=== PATIENT | female | born 1995 | race Caucasian/White ===

== ENCOUNTER → 2016-12-10 | Outpatient (CLI) | payer OTHER ==
--- NOTE | 2016-12-10 08:26 | US ---
EXAMINATION TYPE: US abdomen complete DATE OF EXAM: 12/10/2016 7:26 AM COMPARISON: NONE CLINICAL HISTORY: R10.13 Epigastric pain. Patient states epigastric pain radiates to back, especially in supine position. EXAM MEASUREMENTS: Liver Length: 18.3 cm Gallbladder Wall: 0.3 cm CBD: 0.3 cm Spleen: 10.2 cm Right Kidney: 10.5 x 6.4 x 4.4 cm Left Kidney: 11.2 x 6.5 x 4.6 cm Pancreas: Tail obscured by overlying bowel gas Liver: prominent as is > 18cm. Echotexture thought to be within normal limits. Gallbladder: full of shadowing stones; wall is minimally thickened Evidence for sonographic Huerta's sign: No CBD: wnl Spleen: wnl Right Kidney: wnl Left Kidney: wnl Upper IVC: wnl Abd Aorta: wnl There is no ascites. IMPRESSION: Cholelithiasis, limited exam. Hepatomegaly is borderline
== END | disposition home or self-care (01) ==
LOC: RADUSWWP 06:52
PROVIDERS: ATTEND Internal Medicine
DX: K80.20 Calculus of gallbladder without cholecystitis without obstruction (principal); R16.0 Hepatomegaly, not elsewhere classified
CPT/HCPCS: 76700

== ENCOUNTER 2016-12-24 07:10 | Day surgery (SDC) | payer OTHER ==
[2016-12-22 10:24] VITALS: BMI 25.7
[~2016-12-24 07:10] MED LIST: DEXAMETHASONE SOD PHOSPHATE 10 MG/ML 1 ML VIAL IV ONE; HEPARIN SODIUM,PORCINE 5,000 UNIT/ML 1 ML VIAL SQ ONE; HYDROmorphone 1 MG/ML 1 ML SYRINGE IVP PRN; MIDAZOLAM 2 MG/2 ML VIAL IV PRN; ONDANSETRON 4 MG/2 ML VIAL IVP ONE; SCOPOLAMINE 1.5MG/72HR PATCH TRANSDERM ONE; ceFAZolin 2 GM in SODIUM CHLORIDE 0.9% 100 ML IVPB ONE
[2016-12-24] MEDS ORDERED: LIDOCAINE 1% 20 ML VIAL (10MG/ML) FOR IV START INTRADERMA ONE (08:02)
[2016-12-24] MEDS: LACTATED RINGERS 1,000 ML IV SCH ×2 (08:02→08:28)
[2016-12-24] MEDS ORDERED: fentaNYL (PF) 50 MCG/ML 2 ML AMP ONE (08:29)
[2016-12-24] MEDS ORDERED: PROPOFOL 10 MG/ML 20 ML VIAL IV ONE (08:29)
[2016-12-24] MEDS ORDERED: SUCCINYLCHOLINE CHLORIDE 100 MG/5 ML SYR IV ONE (08:29)
[2016-12-24] MEDS ORDERED: ROCURONIUM BROMIDE 10 MG/ML 10 ML VIAL IV ONE (08:29)
[2016-12-24] MEDS ORDERED: LIDOCAINE 1% INJ 10MG/ML (20 ML MDV) ONE (08:29)
[2016-12-24] MEDS ORDERED: MIDAZOLAM 2 MG/2 ML VIAL ONE (08:29)
[2016-12-24] MEDS ORDERED: PHENYLEPHRINE-0.9% NACL SYG 1 MG/10 ML SYRINGE ONE (08:29)
[2016-12-24] MEDS ORDERED: BUPIVACAIN-EPI 0.25%-1:200,000 30 ML VIAL SQ ONE ×2 (08:44→09:39)
[2016-12-24] MEDS ORDERED: LACTATED RINGERS 1,000 ML IV ONE (09:42)
[2016-12-24 10:08] VITALS: TEMP 97
--- NOTE | 2016-12-24 10:37 | P.OP ---
Date of Procedure: 12/24/16 Preoperative Diagnosis: Chronic cholecystitis Postoperative Diagnosis: Chronic choelcystitis Procedure(s) Performed: Laparoscopic cholecystectomy Implants: Pathology: other Condition: stable Indications for Procedure: Intermittent RUQ pain with fatty food intolerance and ultrasound proven cholelithiasis Operative Findings: Large distended elongated gall bladder withe multiple stones. Prominent chronic inflammatory adhesions Description of Procedure: The patient is a 21-year-old female who presented with epigastric and upper abdominal pain which localized in the right upper quadrant and an ultrasound suggested cholelithiasis. Clinical diagnosis of chronic cholecystitis was made. The risks benefits and possible complications of the procedure were discussed in detail and informed consent was obtained. Patient was identified in the preop operating holding area questions were answered and she was taken back to the operating room where she was placed in the supine position. She was given general anesthesia with endotracheal intubation followed by the placement of an orogastric tube and an appropriate timeout was called the indication for the procedure ALLERGIES medications thromboprophylaxis were all discussed. Abdomen is prepped and draped in the usual sterile surgical fashion supraumbilical region was infiltrated with quarter percent with local anesthesia and incision was made with 11 blade and Veress needle was introduced and abdomen was insufflated to 15 mmHg. Once that was done a 10 mm epigastric port and two 5 mm right upper quadrant ports were placed.the gallbladder was retracted cephalad and superiorly.The fundus was retracted so as to make the Calot's triangle more visible. There were inflammatory peritoneal adhesions and the gallbladder was distended. The adhesions were taken down with the help of blunt dissection and using some electrocautery, skeletonizing the cystic duct ,. there was a large single prominent cystic artery . Cystic duct was clipped proximally and distally followed by clipping of the cystic artery following which they were transected sharply with the help of the niecy. The gallbladder was then taken off the gallbladder fossa with the help of electrocautery and placed in an Endo Catch bag and removed through the 10 m port site after dilating the port site with a Melinda. The port was replaced and the gallbladder fossa was inspected and hemostasis was secured with the help of electrocautery the abdomen was thoroughly irrigated and sucked dry. Tita were noted to be in the appropriate position at this time to take procedure was terminated. the 10 mm port was removed and the port site was closed with the help of a Len Ruiz using 0 Vicryl.The Gas was shut off and all the 5 mm ports were removed. The abdomen was thoroughly desufflated. The remaining local anesthesia was infiltrated into the incisions and the incisions were closed with the help of 4-0 Monocryl Steri-Strips and Dermabond was applied. The patient was extubated and taken to recovery room in stable condition the orogastric tube was removed prior to extubation. There were no complications.
[2016-12-24] MEDS ORDERED: HYDROcodone/APAP 5-325MG 1 EACH TAB PO ONE (11:29)
[2016-12-24 12:09] VITALS: BP 121/67; PULSE 98; RESP 18
== END 2016-12-24 12:29 | disposition home or self-care (01) ==
LOC: OR 07:10
PROVIDERS: ATTEND Surgery
DX: K80.10 Calculus of gallbladder with chronic cholecystitis without obstruction (principal); M94.0 Chondrocostal junction syndrome [Tietze]
CPT/HCPCS: 81025; 88304; 47562; J2250; J1644; J1100; J0690; J2405; J2001; J3010; J2370; J0330; J2704

== ENCOUNTER 2017-02-21 07:29 | Emergency (ER) | payer OTHER ==
[2017-02-21 07:35] VITALS: BP 122/58; PULSE 75; RESP 16; TEMP 97.2
--- NOTE | 2017-02-21 08:32 | ED ---
ENT HPI - General Chief complaint: ENT Stated complaint: Ear pain Time Seen by Provider: 02/21/17 08:24 Source: patient, RN notes reviewed Mode of arrival: ambulatory Limitations: no limitations - History of Present Illness Initial comments: 21-year-old female presents emergency Department chief complaint bilateral ear pain, congestion. Patient states her last few days. Patient states that was worse last night no shortness breath no chest pain no nausea vomiting no fever no chills. - Related Data Previous Rx's Medication Instructions Recorded HYDROcodone/APAP 5-325MG [[place] 1 tab PO Q6HR PRN #15 tab 12/24/16 5-325] Ibuprofen [Motrin] 800 mg PO Q6HR PRN #30 tab 12/24/16 Amoxicillin 875 mg PO Q12HR #20 tablet 02/21/17 Zlsbriie-Sngjwakga-Yc Otic 3 drops BOTH EARS TID #10 ml 02/21/17 [Cortisporin Otic Soln] Allergies Allergy/AdvReac Type Severity Reaction Status Date / Time No Known Allergies Allergy Verified 02/21/17 07:35 Review of Systems ROS Statement: Those systems with pertinent positive or pertinent negative responses have been documented in the HPI. ROS Other: All systems not noted in ROS Statement are negative. Past Medical History Past Medical History: No Reported History Additional Past Medical History / Comment(s): GALLBLADDER ISSUES History of Any Multi-Drug Resistant Organisms: None Reported Past Surgical History: Cholecystectomy Past Anesthesia/Blood Transfusion Reactions: No Reported Reaction Past Psychological History: Anxiety Smoking Status: Never smoker Past Alcohol Use History: None Reported Past Drug Use History: None Reported - Past Family History Mother Family Medical History: No Reported History General Exam Limitations: no limitations General appearance: alert, in no apparent distress Head exam: Present: atraumatic, normocephalic, normal inspection Eye exam: Present: normal appearance, PERRL, EOMI. Absent: scleral icterus, conjunctival injection, periorbital swelling ENT exam: Present: normal oropharynx, mucous membranes moist. Absent: normal exam, TM's normal bilaterally (Erythematous right TM), normal external ear exam (Left ear canal erythematous with some exudates) Neck exam: Present: normal inspection, full ROM. Absent: tenderness, meningismus, lymphadenopathy Respiratory exam: Present: normal lung sounds bilaterally. Absent: respiratory distress, wheezes, rales, rhonchi, stridor Cardiovascular Exam: Present: regular rate, normal rhythm, normal heart sounds. Absent: systolic murmur, diastolic murmur, rubs, gallop, clicks Course Vital Signs 02/21/17 07:33 Temperature 97.2 F L Pulse Rate 75 Respiratory 16 Rate Blood Pressure 122/58 O2 Sat by Pulse 100 Oximetry Medical Decision Making - Medical Decision Making 21-year-old female presented for ear pain.. Patient has otitis media on the right, External the left with mild erythema to the right ear canal patient was placed on eardrops, oral antibiotics did discuss [id number] Sudafed or decongestant for sensation to dysfunction. Return parameters were discussed. Disposition Clinical Impression: Otitis media, Otitis externa, Eustachian tube dysfunction Disposition: HOME SELF-CARE Condition: Stable Instructions: Earache (ED) Additional Instructions: Please return to the Emergency Department if symptoms worsen or any other concerns. Prescriptions: Amoxicillin 875 mg PO Q12HR #20 tablet Cjeanwrr-Lgcyhdskv-Zr Otic [Cortisporin Otic Soln] 3 drops BOTH EARS TID #10 ml Referrals: Lewis Delacruz MD [Primary Care Provider] - 1-2 days Time of Disposition: 08:32
== END 2017-02-21 08:30 | disposition home or self-care (01) ==
LOC: EC 07:29
DX: H66.91 Otitis media, unspecified, right ear (principal); H60.92 Unspecified otitis externa, left ear; H69.91 Unspecified Eustachian tube disorder, right ear
CPT/HCPCS: 99282

== ENCOUNTER 2018-05-06 05:55 | Inpatient (IN) | payer BC, OTHER ==
[2018-05-06] MEDS ORDERED: CARBOPROST TROMETHAMINE 250 MCG/ML 1 ML AMP IM PRN (06:01)
[2018-05-06] MEDS ORDERED: LIDOCAINE 1% INJ 10MG/ML (20 ML MDV) SQ PRN (06:01)
[2018-05-06] MEDS ORDERED: METHYLERGONOVINE 0.2 MG/ML 1 ML AMP IM PRN (06:01)
[2018-05-06] MEDS ORDERED: OXYTOCIN 10 UNIT/ML 1 ML VIAL IM PRN (06:01)
[2018-05-06] MEDS ORDERED: TERBUTALINE 1 MG/ML VIAL SQ PRN (06:01)
[2018-05-06] MEDS ORDERED: LACTATED RINGERS 1,000 ML IV SCH (06:15)
[2018-05-06] MEDS ORDERED: OXYTOCIN 20 UNITS/1000 ML NS 1,000 ML IV SCH ×2 (06:15→11:34)
[2018-05-06 06:16] VITALS: BMI 35.9
[2018-05-06 07:13] LABS: Anisocytosis Slight; Basophils % (A) 0 %; Eosinophils # (A) 0.1 k/uL (0-0.7); Eosinophils % (A) 1 %; HCT 30.8 % (34.0-46.0); HGB 9.7 gm/dL (11.4-16.0); Hypochromasia Moderate; Lymphocytes # (A) 1.8 k/uL (1.0-4.8); Lymphocytes % (A) 18 %; MCH 26.4 pg (25.0-35.0); MCHC 31.4 g/dL (31.0-37.0); Mean Platelet Volume 7.7; Monocytes # (A) 0.6 k/uL (0-1.0); Monocytes % (A) 7 %; Neutrophils # (A) 6.8 k/uL (1.3-7.7); Neutrophils % (A) 71 %; Platelet Count 359 k/uL (150-450); RBC 3.67 m/uL (3.80-5.40); WBC 9.6 k/uL (3.8-10.6)
[2018-05-06] MEDS ORDERED: BUTORPHANOL 1 MG/ML 1 ML VIAL IV PRN (08:50)
--- NOTE | 2018-05-06 09:14 | P.HPOB ---
History of Present Illness H&P Date: 05/06/18 Chief Complaint: Induction of labor This is a 22-year-old female 2 para 1 with an estimated date of confinement of 05/05/2018, estimated gestational age of 40 and one sevenths weeks, who presents to labor and delivery for induction of labor. She actually began feeling contractions on approximate 4 AM this morning. She is feeling good movement. She denies any rupture of membranes. course is been uncomplicated. labs: Hepatitis B surface antigen-negative RPR-nonreactive Rubella-immune Blood type-A+ Antibody screen-negative HIV-nonreactive Hemoglobin-11.5 Toxoplasma screen-negative Random glucose-71 Group B streptococcus-negative Obstetrical history: . History of 1 vaginal delivery at term. Gynecologic history: No history of sexual transmitted diseases. Social history: She is single. She works at [email or web address]. Review of Systems Constitutional: Denies chills, Denies fever Eyes: denies blurred vision, denies pain Ears, nose, mouth and throat: Denies headache, Denies sore throat Cardiovascular: Denies chest pain, Denies shortness of breath Respiratory: Denies cough Gastrointestinal: Reports abdominal pain (Contractions) Genitourinary: Reports pelvic pain, Reports Musculoskeletal: Reports low back pain Integumentary: Denies pruritus, Denies rash Neurological: Denies numbness, Denies weakness Psychiatric: Reports mood swings Past Medical History Past Medical History: No Reported History History of Any Multi-Drug Resistant Organisms: None Reported Past Surgical History: Cholecystectomy Past Anesthesia/Blood Transfusion Reactions: No Reported Reaction Past Psychological History: Anxiety Smoking Status: Never smoker Past Alcohol Use History: None Reported Past Drug Use History: None Reported - Past Family History Mother Family Medical History: No Reported History Medications and Allergies Home Medications Medication Instructions Recorded Confirmed Type No Known Home Medications 05/06/18 05/06/18 History Allergies Allergy/AdvReac Type Severity Reaction Status Date / Time No Known Allergies Allergy Verified 02/21/17 07:35 Exam Osteopathic Statement: *. No significant issues noted on an osteopathic structural exam other than those noted in the History and Physical/Consult. Vital Signs Temp Pulse Resp BP 05/06/18 06:00 97.5 F L 81 16 131/64 Intake and Output 10/04/18 10/05/18 10/05/18 22:59 06:59 14:59 Other: # Voids 1 Weight 92.079 kg HEENT: Within normal limits Heart: Regular rate and rhythm Lungs: Clear to auscultation bilaterally Abdomen: Cervix: 3-1/2 cm/70-80%/-2 station heart tones: Reactive Contractions: Irregular every 4-5 minutes Extremities: Negative Homans Results Result Diagrams: 05/06/18 06:05 Abnormal Lab Results - Last 24 Hours (Table) 05/06/18 Range/Units 06:05 RBC 3.67 L (3.80-5.40) m/uL Hgb 9.7 L (11.4-16.0) gm/dL Hct 30.8 L (34.0-46.0) % RDW 16.0 H (11.5-15.5) % Assessment and Plan (1) 40 weeks gestation of Current Visit: Yes Status: Acute Code(s): Z3A.40 - 40 WEEKS GESTATION OF SNOMED Code(s): 85370494 Plan: Proceed with oxytocin induction of labor. Expectant management.
[2018-05-06] MEDS ORDERED: diphenhydrAMINE 25 MG CAP PO PRN (11:34)
[2018-05-06] MEDS ORDERED: ACETAMINOPHEN TAB 325 MG TAB PO PRN (11:34)
[2018-05-06] MEDS ORDERED: ZOLPIDEM 5 MG TAB PO PRN (11:34)
[2018-05-06] MEDS ORDERED: LANOLIN CREAM 5 GM TUBE TOPICAL PRN (11:34)
[2018-05-06] MEDS ORDERED: diphenhydrAMINE 50 MG/ML 1 ML VIAL IVP PRN ×2 (11:34)
[2018-05-06] MEDS ORDERED: diphenhydrAMINE 50 MG CAP PO PRN (11:34)
[2018-05-06] MEDS ORDERED: BENZOCAINE/MENTHOL SPRAY 1 GM/SPRAY AEROSOL TOPICAL PRN (11:34)
[2018-05-06] MEDS ORDERED: WITCH HAZEL 1 EACH MED..PAD TOPICAL PRN (11:34)
[2018-05-06] MEDS ORDERED: IBUPROFEN 600 MG TAB PO PRN (11:34)
[2018-05-06] MEDS ORDERED: HYDROCORTISONE 2.5% RECTAL CREAM 30 GM TUBE RECTAL PRN (11:34)
[2018-05-06] MEDS ORDERED: SIMETHICONE 80 MG CHEWABLE PO PRN (11:34)
--- NOTE | 2018-05-06 13:14 | P.PROBDLV ---
Vaginal Delivery Note - . Vaginal Delivery Note: The patient underwent oxytocin induction of labor and artificial rupture membranes with clear fluid noted. She did receive 1 dose of Stadol while in labor. Once reaching complete dilation, she pushed for a short while. The head delivered across the perineum in a left occiput anterior lie. With one further push, the anterior shoulder delivered. Nose and mouth were bulb suctioned at the perineum and nuchal cord times one was reduced around the 's head. With one further push, the remainder the infant easily delivered and was placed on mother's abdomen. Cord was clamped and cut and was taken to warmer for evaluation by nursing staff. A viable female infant was noted with scores of 8 at 1 minute and 9 at 5 minutes. Infant weight was 7 lbs. 14 oz. Next the placenta delivered shortly thereafter, intact , with a three-vessel cord. Uterus contracted well after oxytocin was given and uterine massage was carried out. Inspection of the perineum revealed a periurethral laceration just above the urethra. This area was anesthetized with 1% lidocaine and then sutured with 3-0 Vicryl suture in a running locked fashion. Estimated blood loss is approximately 150 mL's. Both mother and are in stable condition.
[2018-05-06 14:06] VITALS: RESP 16
[2018-05-06] MEDS: SENNOSIDES-DOCUSATE SODIUM 1 EACH TAB PO SCH (20:14)
--- NOTE | 2018-05-07 07:21 | P.DS ---
Providers Date of admission: 05/06/18 05:55 Expected date of discharge: 05/07/18 Attending physician: Roshni Vega Primary care physician: Stated None - Discharge Diagnosis(es) (1) Normal vaginal delivery Current Visit: Yes Status: Acute Hospital Course: Patient presented for induction of labor. She underwent normal vaginal delivery. Her course uncomplicated. She'll be discharged home day #1 in stable condition to follow-up With Dr. Vega in 6 weeks. Plan - Discharge Summary New Discharge Prescriptions: No Action No Known Home Medications Discharge Medication List No Known Home Medications 05/06/18 [History] Follow up Appointment(s)/Referral(s): Roshni Vega DO [Doctor of Osteopathic Medicine] - 6 Weeks Discharge Disposition: HOME SELF-CARE
[2018-05-07 08:29] LABS: Anisocytosis Slight; Basophils % (A) 0 %; Eosinophils # (A) 0.1 k/uL (0-0.7); Eosinophils % (A) 1 %; HCT 25.3 % (34.0-46.0); HGB 8.7 gm/dL (11.4-16.0); Lymphocytes # (A) 1.9 k/uL (1.0-4.8); Lymphocytes % (A) 18 %; MCH 27.7 pg (25.0-35.0); MCHC 34.5 g/dL (31.0-37.0); MCV 80.2 fL (80.0-100.0); Monocytes # (A) 0.5 k/uL (0-1.0); Monocytes % (A) 5 %; Neutrophils % (A) 75 %; Platelet Count 273 k/uL (150-450); RBC 3.16 m/uL (3.80-5.40); WBC 10.7 k/uL (3.8-10.6)
[2018-05-07 08:45] VITALS: BP 106/75; PULSE 84; TEMP 98.1
[2018-05-07] MEDS: SENNOSIDES-DOCUSATE SODIUM 1 EACH TAB PO SCH (08:46)
== END 2018-05-07 15:11 | disposition home or self-care (01) | DRG 807 ==
LOC: 4FBP 05:55
PROVIDERS: ADMIT Obstetrics & Gynecology; ATTEND Obstetrics & Gynecology
PROC: 10E0XZZ Delivery of Products of Conception, External Approach (ICD-10-PCS; principal; 2018-05-06)
PROC: 3E033VJ Introduction of Other Hormone into Peripheral Vein, Percutaneous Approach (ICD-10-PCS; 2018-05-06)
PROC: 10907ZC Drainage of Amniotic Fluid, Therapeutic from Products of Conception, Via Natural or Artificial Opening (ICD-10-PCS; 2018-05-06)
PROC: 0HQ9XZZ Repair Perineum Skin, External Approach (ICD-10-PCS; 2018-05-06)
DX: O69.81X0 Labor and delivery complicated by cord around neck, without compression, not applicable or unspecified (principal); Z37.0 Single live birth; O99.344 Other mental disorders complicating childbirth; F41.9 Anxiety disorder, unspecified; O71.82 Other specified trauma to perineum and vulva; Z3A.40 40 weeks gestation of pregnancy; Z90.49 Acquired absence of other specified parts of digestive tract
CPT/HCPCS: 85025; 86850; 86900; 86901

== ENCOUNTER → 2024-01-12 | Outpatient (CLI) | payer OTHER ==
[2024-01-12 18:05] LABS: Basophils # (A) 0.02 X 10*3/uL (0.00-0.10); Basophils % (A) 0.3 %; Eosinophils # (A) 0.05 X 10*3/uL (0.04-0.35); Eosinophils % (A) 0.9 %; HCT 38.7 % (37.2-46.3); Lymphocytes # (A) 1.92 X 10*3/uL (0.90-5.00); MCH 28.1 pg (27.0-32.0); MCV 90.6 FL (80.0-97.0); Mean Platelet Volume 11.7 FL (9.5-12.2); Monocytes # (A) 0.36 X 10*3/uL (0.20-1.00); Monocytes % (A) 6.2 %; NRBC Per 100 WBC 0 X 10*3/uL (0.00-0.01); Neutrophils # (A) 3.44 X 10*3/uL (1.80-7.70); Neutrophils % (A) 59.3 %; Platelet Count 337 X 10*3/uL (140-440); RBC 4.27 X 10*6/uL (4.10-5.20); RDW 14.9 % (11.5-14.5); WBC 5.81 X 10*3/uL (4.50-10.00)
[2024-01-12 18:46] LABS: % Iron Saturation 23.74 (12.00-45.00); T4, Free (Free Thyroxine) 1.07 ng/dL (0.80-1.80)
== END | disposition home or self-care (01) ==
LOC: LABWHC1 11:19
PROVIDERS: ATTEND Physician Assistant Medical
DX: L65.0 Telogen effluvium (principal)
CPT/HCPCS: 36415; 82306; 82652; 83540; 83550; 84439; 84443; 85025; 86376